=== PATIENT | male | born 1970 | race Caucasian/White ===

== ENCOUNTER → 2016-07-15 | Outpatient (CLI) | payer MEDICAID | LOC: BHSO 14:15 | DX: F20.89 Other schizophrenia (principal) ==

== ENCOUNTER → 2016-10-06 | Outpatient (CLI) | payer MEDICAID | LOC: BHSO 13:10 | DX: F20.9 Schizophrenia, unspecified (principal) ==

== ENCOUNTER → 2017-02-19 | Outpatient (CLI) | payer MEDICAID | LOC: BHSO 13:45 | DX: F20.9 Schizophrenia, unspecified (principal) ==

== ENCOUNTER → 2017-12-01 | Outpatient (CLI) | payer SELFPAY | LOC: BHSO 13:05 | DX: F20.9 Schizophrenia, unspecified (principal) | CPT/HCPCS: G0463 ==

== ENCOUNTER 2019-07-24 19:30 | Emergency (ER) | payer MEDICAID ==
[~2019-07-24] VITALS: Ht 180.3 cm; Wt 84.1 kg
[2019-07-24 19:44] VITALS: TEMP 98.6
[2019-07-24 20:38] LABS: BASO % 0.6 % (0.0-2.0); GRAN # 3.4 (1.4-6.5); HEMOGLOBIN 16.5 g/dl (13.5-18.0); LYMPH # 0.7 (1.2-3.4); LYMPH % 14.1 % (20.0-51.0); MEAN CELL VOLUME 93 fl (80.0-100.0); MEAN CORPUSCULAR HEMOGLOBIN 32 pg (27.0-31.0); MEAN CORPUSCULAR HGB CONC 34 g/dl (33.0-37.0); MEAN PLATELET VOLUME 9.8 fl (7.4-10.4); MONO # 0.8 (0.1-0.6); MONO % 15.7 % (1.7-9.3); PLATELET COUNT 202 K/mm3 (130-400); RED BLOOD COUNT 5.18 M/mm3 (4.20-5.60); REDCELL DISTRIBUTION WIDTH-CV 13.5 % (11.5-14.5)
[2019-07-24 20:52] LABS: BILIRUBIN,TOTAL 0.6 mg/dL (0.0-1.0); C-REACTIVE PROTEIN 2.2 mg/dL (0.0-0.9); CALCIUM 8.4 mg/dL (8.4-10.2); CREATININE, serum 0.9 (0.66-1.25); POTASSIUM 3.5 mmol/L (3.4-5.0); TOTAL PROTEIN 7.1 gm/dL (6.4-8.2)
[2019-07-24] MEDS ORDERED: TAMIFLU 75MG75 MG PO (21:25)
[2019-07-24 21:27] VITALS: BP 119/76; PULSE 90
[2019-07-24 21:40] LABS: COLLECTION METHOD CLEAN CATCH
[2019-07-24 21:50] LABS: PH 7 (5-8); SQUAMOUS EPITHELIAL None Seen /hpf; URINE APPEARANCE Clear; URINE BACTERIA Rare /hpf; URINE BILIRUBIN Negative (NEGATIVE); URINE BLOOD 1+ (NEGATIVE); URINE COLOR Yellow; URINE GLUCOSE Negative (NEGATIVE); URINE KETONE Trace (NEGATIVE); URINE LEUKOCYTE ESTERASE Negative (NEGATIVE); URINE NITRATE Negative (NEGATIVE); URINE PROTEIN(semi-quant) Negative (NEGATIVE); URINE RBC 0-2 /hpf; URINE UROBILINOGEN Negative (NEGATIVE)
[2019-07-24 22:03] LABS: TRICYCLIC ANTIDEPRESS URINE NEGATIVE
== END 2019-07-24 22:15 | disposition home or self-care (01) ==
LOC: COL.ER 19:30
PROVIDERS: Emergency Medicine
DX: J10.1 Influenza due to other identified influenza virus with other respiratory manifestations (principal); F17.210 Nicotine dependence, cigarettes, uncomplicated
CPT/HCPCS: C9113; J2405; J7030